=== PATIENT | female | born 1965 | race Caucasian/White ===

== ENCOUNTER 2017-03-30 03:17 | Emergency (ER) | payer MEDICAID ==
[2017-03-30 03:31] VITALS: BP 106/82; BMI 25.0
--- NOTE | 2017-03-30 03:44 | DR.GENAD ---
HPI - PCP Primary Care Physician: NIKITA WIGGINS - Complaint/Symptoms Chief Complaint:: RIGHT SIDE OF HEAD, EAR, NECK PAIN. STARTED ON TUESDAY WITH THE FEELING OF SOMETHING IN MY EAR. 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 Past Surgical History: Yes Surgical History: Hysterectomy, Ortho Surgery, Tonsillectomy, Other - Family History History of Family Medical Conditions: Yes Family Medical History: Diabetes Mellitus, Coronary Artery Disease, Hypertension - Social History Type of Tobacco Use: Cigarettes Alcohol Use: None Do you use any recreational Drugs:: No Lives With: Family Lives Where: Home - infectious screening Have you traveled outside the country in the last 6 months?: No Isolation: Standard ROS - Review of Systems Constitutional: No Symptoms Reported Eyes: No Symptoms Reported ENTM: Ear Pain, Hearing Loss (chronic). negative: Ear Discharge, Pulling on Ears Respiratoy: No Symptoms Reported Cardiovascular: No Symptoms Reported Gastrointestinal/Abdominal: No Symptoms Reported Genitourinary: No Symptoms Reported Neurological: No Symptoms Reported Musculoskeletal: No Symptoms Reported Integumentary: Rash (right scalp post auricular area) PE - Vital Signs Vitals: Temperature 97.6 F Pulse Rate 84 Respiratory Rate 18 Blood Pressure 106/82 O2 Sat by Pulse Oximetry 100 - General Limitations: No Limitations General Appearance: Alert, In No Apparent Distress - Head Head Exam: Normal Inspection - Eyes Eye exam: Normal Appearance, EOMI. negative: Scleral Icterus, Conjunctival Injection - ENT ENT Exam: Normal Oropharynx. negative: Normal External Ear Exam (redness) External Ear Exam: Normal External Inspection Nose Exam: Normal Nose Exam - Neck Neck Exam: Normal Inspection, Full ROM, Trachea Midline - Respiratory Respiratory Exam: negative: Accessory Muscle Use, Respiratory Distress - Cardiovascular Cardiovascular Exam: Regular Rate - Abdominal Exam Abdominal Exam: Normal Inspection, Normal Bowel Sounds, Soft. negative: Distention, Tenderness, Guarding - Extremities Extremities Exam: Normal Inspection, Full ROM, Tenderness - Neurologic Neurological Exam: Alert, Oriented X3, CN II-XII Intact - Psychiatric Psychiatric Exam: Normal Mood - Skin Skin Exam: Intact, Rash (right pot auricular area and right scalp). negative: Normal Color - Diagnosis Discharge Problem: Shingles rash Qualifiers: Herpes zoster complications: without complications Qualified Code(s): B02.9 - Zoster without complications - Discharge Plan Condition: Stable Prescriptions: Acyclovir 400 mg PO Q8H #30 tab - Follow ups/Referrals Follow ups/Referrals: N[facility],None [Primary Care Provider] - 3 days - Instructions
[2017-03-30] MEDS ORDERED: ZOVIRAX PO ONE ×2 (03:49→03:54)
== END 2017-03-30 04:10 | disposition home or self-care (01) ==
LOC: ER 03:17
DX: R21 Rash and other nonspecific skin eruption (principal); B02.9 Zoster without complications
CPT/HCPCS: 99282